=== PATIENT | male | born 1955 | race Caucasian/White ===

== ENCOUNTER → 2022-01-19 09:06 | Outpatient (CLI) | payer MEDICARE, SELFPAY ==
--- NOTE | 2022-01-19 | DI.ECHO.S_ITS ---
[facility] +---------+ : : [address] : : : : [id number] : : : : Phone: [phone] +---------+ Echocardiogram Report + + :Name: LEIGH SPRAGUE Study Date: 01/19/2022 Height: 66 in : :[facility] ReadingLocation: Weight: 160 lb : : Gender: Male BSA: 1.8 m2 : :: 1955 Age: 66 yrs BP: 117/77 mmHg: :Reason For Study: CARDIOMYOPATHY : :Ordering Physician: DEMETRA, : :LIAM Performed By: Carol Joseph : :Referring: LIAM ADHIKARI : + + Interpretation Summary Limited Echo: 1) Normal left ventriuclar size and thickness with moderately reduced systolic function (EF 35-40%). 2) No prior Echo available for comparison. Left Ventricle: The left ventricle is normal in size and wall thickness. The ejection fraction is estimated to be 35-40%. There is a mild dyssynchronous contraction pattern, consistent with a conduction abnormality. Pericardium/ Pleura There is no pericardial effusion. MMode/2D Measurements & Calculations LVIDd: 4.8 cm LVIDs: 4.1 cm FS: 14.4 % EPSS: 1.3 cm IVSd: 0.83 cm LVPWd: 0.91 cm LV ogden. diameter/BSA (cm/m^2): 2.6 LV sys. diameter/BSA (cm/m^2): 2.2 Reading Physician:03:10 PM
== END ==
PROVIDERS: PCP Internal Medicine; Referring Provider Internal Medicine Cardiovascular Disease; Visit Provider Internal Medicine Cardiovascular Disease
DX: I42.9 Cardiomyopathy, unspecified (principal)
CPT/HCPCS: 93307